=== PATIENT | female | born 1995 | race Caucasian/White ===

== ENCOUNTER 2019-11-02 21:53 | Emergency (ER) | payer MEDICAID ==
[~2019-11-02] VITALS: Ht 172.7 cm; Wt 91.8 kg
--- NOTE | 2019-11-02 22:11 | NUR ---
Patient came to ER for right hand swelling and redness. Patient states she injected meth yesterday and overnight her hand became red and swollen. Patient injects meth twice a week and has never had this reaction before. Patient denies fever, N/V. Patient appears uncomfortable with movement of her hand. Otherwise, in NAD. Respirations even and unlabored.
[2019-11-02 22:14] VITALS: BP 135/80
[2019-11-02] MEDS ORDERED: SULFAMETH./TRIMETHOPRIM DS 800MG/160MG TABLET ONE (22:15)
[2019-11-02] MEDS ORDERED: CEFTRIAXONE 1,000 MG ONE (22:16)
[2019-11-02] MEDS ORDERED: IBUPROFEN 800 MG TABLET ONE (22:27)
[2019-11-02] MEDS ORDERED: SULFAMETH./TRIMETHOPRIM DS 800MG/160MG TABLET PO ONE (22:30)
[2019-11-02] MEDS ORDERED: IBUPROFEN 800 MG TABLET PO ONE (22:30)
[2019-11-02] MEDS ORDERED: CEFTRIAXONE 1,000 MG IM ONE (22:30)
--- NOTE | 2019-11-02 22:34 | NUR ---
Patient given discharge instructions and they have confirmed that they understand the instructions. Patient ambulatory with steady gait. Belongings with patient.
== END 2019-11-02 22:35 | disposition home or self-care (01) ==
LOC: ED 22:16
DX: L03.113 Cellulitis of right upper limb (principal); F17.200 Nicotine dependence, unspecified, uncomplicated; F15.10 Other stimulant abuse, uncomplicated; Z72.9 Problem related to lifestyle, unspecified
CPT/HCPCS: 96372; 99283; J0696

== ENCOUNTER 2020-01-25 14:26 | Emergency (ER) | payer MEDICAID ==
[~2020-01-25] VITALS: Ht 170.2 cm; Wt 91.5 kg
[2020-01-25 14:44] VITALS: BP 96/50
[2020-01-25] MEDS ORDERED: CEFTRIAXONE 1,000 MG ONE (14:59)
[2020-01-25] MEDS ORDERED: LIDOCAINE-MPF 1%, 5ML ONE (14:59)
[2020-01-25] MEDS ORDERED: LIDOCAINE-MPF 1%, 2ML ONE (14:59)
[2020-01-25] MEDS ORDERED: CEFTRIAXONE 1,000 MG IM ONE (15:00)
[2020-01-25] MEDS ORDERED: LIDOCAINE-MPF 1%, 5ML INFIL ONE (15:00)
== END 2020-01-25 15:04 ==
LOC: ED 15:03
DX: L02.31 Cutaneous abscess of buttock (principal)
CPT/HCPCS: 96372; 99283; J0696

== ENCOUNTER 2020-02-11 01:20 | Emergency (ER) | payer MEDICAID ==
[~2020-02-11] VITALS: Ht 170.2 cm; Wt 93.6 kg
[2020-02-11 01:30] VITALS: BP 126/77
[2020-02-11] MEDS ORDERED: LIDOCAINE-MPF 1%, 5ML INFIL ONE (02:00)
[2020-02-11] MEDS ORDERED: LIDOCAINE-MPF 1%, 5ML ONE (02:23)
== END 2020-02-11 03:03 | disposition home or self-care (01) ==
LOC: ED 02:59
DX: L03.317 Cellulitis of buttock (principal); R21 Rash and other nonspecific skin eruption
CPT/HCPCS: 10060; 99283

== ENCOUNTER 2020-02-24 00:58 | Emergency (ER) | payer MEDICAID ==
[~2020-02-24] VITALS: Ht 170.2 cm; Wt 92.2 kg
[2020-02-24 01:00] VITALS: BP 149/85
--- NOTE | 2020-02-24 01:34 | NUR ---
Patient presents to ER c/o urinary frequecy and urgency. She states she feels like she can't empty her bladder. Patient has pain when she urinates. Patient denies vaginal bleeding or discharge. Patient is in NAD. Respirations even and unlabored.
[2020-02-24] MEDS ORDERED: KETOROLAC 30 MG/1 ML ONE (01:40)
[2020-02-24] MEDS ORDERED: KETOROLAC 30 MG/1 ML IM ONE (02:00)
[2020-02-24 02:20] LABS: HCG UR SG 1.031 (1.003-1.030)
[2020-02-24 02:21] LABS: CULTURE INDICATED? YES; MICROSCOPIC INDICATED
[2020-02-24] MEDS ORDERED: PHENAZOPYRIDINE 200 MG TABLET ONE (02:51)
[2020-02-24] MEDS ORDERED: NITROFURANTOIN (MACROBID) 100 MG CAPSULE ONE (02:51)
[2020-02-24] MEDS ORDERED: NITROFURANTOIN (MACROBID) 100 MG CAPSULE PO ONE (03:00)
[2020-02-24] MEDS ORDERED: PHENAZOPYRIDINE 200 MG TABLET PO ONE (03:00)
== END 2020-02-24 03:10 | disposition home or self-care (01) ==
LOC: ED 02:58
DX: R30.0 Dysuria (principal); R10.30 Lower abdominal pain, unspecified; F17.200 Nicotine dependence, unspecified, uncomplicated
CPT/HCPCS: 81001; 81025; 87086; 96372; 99283; J1885